=== PATIENT | male | born 1965 | race African-American/Black ===

== ENCOUNTER 2017-06-15 15:56 | Emergency (ER) | payer OTHER, MEDICAID ==
[~2017-06-15] VITALS: Ht 182.9 cm; Wt 108.9 kg
[~2017-06-15 15:56] MED LIST: BENA10TA9 PO; INSUINJ3; INSUINJ32; LEVO200I5 PO
[2017-06-15 16:59] LABS: Basophils # (auto) 0.1 uL; Basophils % (auto) 2.9 % (0.0-2.0); Eosinophils # (auto) 0.1 uL; Hematocrit 42.3 % (41.0-53.0); Hemoglobin 14.4 g/dL (13.5-17.5); Lymphocytes # (auto) 0.5 uL; Lymphocytes % (auto) 16.3 % (10.0-50.0); Mean Corpuscular Hemoglobin 33.1 pg (28.0-32.0); Mean Corpuscular Hgb Conc. 34.1 g/dL (32.0-36.0); Mean Platelet Volume 6.6 fL (7.4-10.4); Monocytes # (auto) 0.5 uL; Monocytes % (auto) 16.1 % (0.0-12.0); Neutrophils # (auto) 1.7 uL; Neutrophils % (auto) 59.7 % (37.0-80.0); Platelet Count (auto) 311 10^3/uL (140-450); Red Cell Distribution Width 14.2 % (11.6-16.0); White Blood Cell 2.9 10^3/uL (4.4-10.8)
[2017-06-15 17:59] LABS: Chloride 105 mmol/L (98-107); INR 1.05 (0.9-1.15); Potassium 3.8 mmol/L (3.5-5.1); Prothrombin Time 11.4 sec (9.37-12.3); Sodium 141 mmol/L (136-145)
[2017-06-15 18:00] LABS: Albumin 2.8 g/dL (3.4-5.0); Alkaline Phosphatase 88 U/L (45-117); Anion Gap 6 (5-15); Aspartate Aminotransferase 25 U/L (15-37); BUN/Creatinine Ratio 15.7; Bilirubin, Total 0.2 mg/dL (0.2-1.0); Blood Urea Nitrogen 18 mg/dL (7-18); Calcium 8.2 mg/dL (8.5-10.1); Carbon Dioxide 30 mmol/L (21-32); GFR African American 87 mL/min; GFR Non-African American 72 mL/min; Glucose 73 mg/dL (74-106); Total Protein 7.1 g/dL (6.4-8.2)
[2017-06-15 18:49] VITALS: BP 128/68
[2017-06-15] MEDS ORDERED: DEXTROSE (50%) 50ML SYRG IV ONE (19:00)
== END 2017-06-15 20:18 | disposition home or self-care (01) ==
LOC: ER 15:56 → EDBD 15:56 → ER 20:18
DX: E11.649 Type 2 diabetes mellitus with hypoglycemia without coma (principal); R41.82 Altered mental status, unspecified; Z82.79 Family history of other congenital malformations, deformations and chromosomal abnormalities; E07.89 Other specified disorders of thyroid; Z79.4 Long term (current) use of insulin
CPT/HCPCS: 36415; 70450; 71010; 80053; 82962; 83735; 84484; 85025; 85610; 85730; 93005; 94761

== ENCOUNTER 2018-11-30 09:55 | Inpatient (IN) | payer OTHER, MEDICAID ==
[~2018-11-30] VITALS: Ht 157.5 cm; Wt 75.1 kg
[~2018-11-30 09:55] MED LIST changes: -INSUINJ32; +INSUINJ32 SC
[2018-11-30 11:41] LABS: Basophils # (auto) 0.1 uL; Eosinophils # (auto) 0.1 uL; Eosinophils % (auto) 1.6 % (0.0-7.0); Lymphocytes # (auto) 0.8 uL; Monocytes # (auto) 0.3 uL
[2018-11-30 11:43] LABS: Basophils % (auto) 1.4 % (0.0-2.0); Hemoglobin 14.9 g/dL (13.5-17.5); Lymphocytes % (auto) 11.9 % (10.0-50.0); Mean Corpuscular Hemoglobin 31.9 pg (28.0-32.0); Mean Corpuscular Hgb Conc. 33.2 g/dL (32.0-36.0); Mean Corpuscular Volume 96.1 fL (80.0-100.0); Neutrophils # (auto) 5.4 uL; Neutrophils % (auto) 81.1 % (37.0-80.0); Nucleated Red Blood Cells % 0.1 %; Red Blood Cells 4.68 10^6/uL (4.5-5.90); Red Cell Distribution Width 14.6 % (11.8-14.3); White Blood Cell 6.7 10^3/uL (4.4-10.8)
[2018-11-30 11:58] LABS: Albumin 2.7 g/dL (3.4-5.0); Anion Gap 4 (5-15); Blood Urea Nitrogen 12 mg/dL (7-18); Calcium 8.3 mg/dL (8.5-10.1); Carbon Dioxide 28 mmol/L (21-32); Chloride 106 mmol/L (98-107); Glucose 208 mg/dL (74-106); Potassium 4.5 mmol/L (3.5-5.1); Sodium 138 mmol/L (136-145)
[2018-11-30 12:04] LABS: Alanine Aminotransferase 132 U/L (16-61); Alkaline Phosphatase 128 U/L (45-117); Aspartate Aminotransferase 44 U/L (15-37); Bilirubin, Total 0.2 mg/dL (0.2-1.0); GFR African American 101 mL/min; GFR Non-African American 84 mL/min; Total Protein 7.6 g/dL (6.4-8.2)
[2018-11-30 13:31] LABS: Platelet Count (auto) 589 10^3/uL (140-450)
[2018-11-30 16:28] LABS: Partial Thromboplastin Time 49.2 sec (23.78-33.04); Prothrombin Time 50.6 sec (9.27-12.13)
[2018-11-30] MEDS ORDERED: SODIUM CHLORIDE 0.9% 500 ML IV ONE (16:30)
[2018-11-30 16:32] LABS: INR 5.43 (0.9-1.15)
[2018-11-30] MEDS ORDERED: MORPHINE SULF INJ 2 MG/ML SYRINGE 1ML IV PRN (17:45)
[2018-11-30] MEDS ORDERED: LORazepam 2MG/ML-1ML VIAL IV PRN (17:45)
[2018-11-30] MEDS ORDERED: ONDANSETRON HCL 4 MG/2 ML VIAL IV PRN (17:45)
[2018-11-30] MEDS ORDERED: HYDROcodone-ACET 5/325MG TAB PO PRN (17:45)
[2018-11-30] MEDS ORDERED: MORPHINE SULFATE 4 MG/ML SYR/VIAL IV PRN (17:45)
[2018-11-30] MEDS ORDERED: NITROGLYCERIN 0.4 MG SL TAB SL PRN (17:45)
[2018-11-30] MEDS ORDERED: ACETAMINOPHEN 500 MG TAB PO PRN (17:45)
[2018-11-30] MEDS ORDERED: DEXTROSE (50%) 50ML SYRG IV PRN (17:45)
--- NOTE | 2018-11-30 20:35 | NUR ---
Pt received on unit, and receiving Keppra IV. Photo take of open sore on sacrum, perianal area. Pt appears in pain when area cleansed so pain meds given. Bed rails padded and suction available. Bed rails up and bed falls alarm set.
[2018-11-30 21:54] VITALS: BP 94/70
[2018-11-30] MEDS: ACCU-CHEK COMFORT CURVE STRIP VI SCH (22:20)
[2018-11-30] MEDS: InsuLIN REG 1unit/0.01ml Soln (100units/ml) SC SCH (22:20)
[2018-11-30] MEDS: LEVETIRACETAM INJ 1,000 MG in D5W 5% 100 ML IV SCH (22:39)
[2018-12-01 05:34] VITALS: BP 101/54
[2018-12-01] MEDS: InsuLIN REG 1unit/0.01ml Soln (100units/ml) SC SCH ×4 (06:58→22:44)
--- NOTE | 2018-12-01 07:00 | NUR ---
Pt's glucose 47 at 0615. D50 given, 1 amp and rechecked at 0700, and was 124. Dr. Gamble notified of this. Pt is asymptomatic.
[2018-12-01] MEDS: ACCU-CHEK COMFORT CURVE STRIP VI SCH ×4 (07:03→22:00)
--- NOTE | 2018-12-01 07:30 | NUR ---
Opening Shift Note Assumed care of patient, alert and oriented x3. No S/S of distress/SOB or pain. IV in left AC asymptomatic, intact, patent, and saline locked. Bed locked and in lowest position and call light is within reach. Instructed on POC and to call for assist PRN, and patient verbalized understanding to the best of his knowledge. Will continue to monitor for changes Q1hr and PRN.
[2018-12-01 07:51] LABS: Basophils # (auto) 0.1 uL; Eosinophils # (auto) 0.1 uL; Eosinophils % (auto) 1.9 % (0.0-7.0); Hematocrit 40.2 % (41.0-53.0); Hemoglobin 13.7 g/dL (13.5-17.5); Lymphocytes # (auto) 0.6 uL; Lymphocytes % (auto) 8.8 % (10.0-50.0); Mean Corpuscular Hemoglobin 32.2 pg (28.0-32.0); Mean Corpuscular Volume 94.8 fL (80.0-100.0); Monocytes # (auto) 0.3 uL; Monocytes % (auto) 4.8 % (0.0-12.0); Neutrophils # (auto) 5.9 uL; Neutrophils % (auto) 83.5 % (37.0-80.0); Platelet Count (auto) 533 10^3/uL (140-450); Red Blood Cells 4.24 10^6/uL (4.5-5.90); Red Cell Distribution Width 14.3 % (11.8-14.3); White Blood Cell 7.1 10^3/uL (4.4-10.8)
[2018-12-01 08:11] LABS: Partial Thromboplastin Time 57.6 sec (23.78-33.04)
[2018-12-01 08:29] LABS: INR 6.22 (0.9-1.15)
[2018-12-01 09:00] VITALS: BP 108/60
[2018-12-01 09:28] LABS: Anion Gap 6 (5-15); Carbon Dioxide 28 mmol/L (21-32); Chloride 107 mmol/L (98-107); Sodium 141 mmol/L (136-145)
[2018-12-01 09:29] LABS: BUN/Creatinine Ratio 12.2; Blood Urea Nitrogen 10 mg/dL (7-18); GFR African American 127 mL/min; GFR Non-African American 105 mL/min; Glucose 100 mg/dL (74-106)
[2018-12-01 09:30] LABS: Cholesterol 109 mg/dL (< 200); HDL Cholesterol 28 mg/dL (40-59); LDL Cholesterol 72 mg/dL (< 100); Triglycerides 94 mg/dL (< 150)
[2018-12-01] MEDS: LEVETIRACETAM INJ 1,000 MG in D5W 5% 100 ML IV SCH (10:00)
[2018-12-01] MEDS: BENAZEPRIL HCL 10 MG TAB PO SCH (10:00)
--- NOTE | 2018-12-01 12:26 | NUR ---
DR. LARRY AT BEDSIDE. NEW ORDERS RECEIVED.
[2018-12-01] MEDS: SODIUM CHLORIDE 0.9% 1,000 ML IV SCH ×2 (12:45→22:45)
[2018-12-01 13:00] VITALS: BP 112/62
--- NOTE | 2018-12-01 13:30 | NUR ---
WOUND CARE NOTE: Wound care consult received from nursing. Patient is a 53 yo male admitted for seizure activity. Patient has a history of down's syndrome, HTN, DM, and sacral wound. Patient seen with bedside RN, Angélica. Patient is drowsy, but opens eyes with repositioning and non verbal at time of assessment. No signs/symptoms of pain. Per chart, patient is wheelchair/bedbound. Patient's lower extremities appear slightly contracted. Patient with several areas of dry, scaly skin to bilateral lower extremities/knees. Patient also has a healing pressure injury to sacrum, now presents as a stage 3 wound. RECOMMENDATIONS: Turn q2hrs; dietary consult; Nursing to cleanse sacral wound with wound cleanser, pat dry, apply therahoney gel to open wounds, cover with optifoam gentle sacral dressing; wound care team to follow. Addendum: 12/01/18 at 1844 by NIKOLE PRESTON RN Amended: Links added.
--- NOTE | 2018-12-01 13:53 | NUR ---
ORDER AND CLINICALS FAXED TO [facility] REQUESTING TRANSFER TO [facility].
--- NOTE | 2018-12-01 14:31 | NUR ---
PATIENT HAS BEEN PUT ON WILL CALL WITH [facility] AUTH NUMBER [id number]. PLEASE CALL [facility] AT [phone] WHEN PATIENT IS READY TO TRANSFER TO [facility]
[2018-12-01] MEDS: LEVETIRACETAM INJ 500 MG in D5W 5% 100 ML IV SCH (21:13)
[2018-12-01 22:00] VITALS: BP 101/55
[2018-12-02 05:00] VITALS: BP 108/71
[2018-12-02 05:47] LABS: Partial Thromboplastin Time 57.8 sec (23.78-33.04); Prothrombin Time 58.5 sec (9.27-12.13)
[2018-12-02 05:57] LABS: INR 6.05 (0.9-1.15)
[2018-12-02] MEDS: ACCU-CHEK COMFORT CURVE STRIP VI SCH ×2 (06:45→12:00)
[2018-12-02] MEDS: InsuLIN REG 1unit/0.01ml Soln (100units/ml) SC SCH ×2 (06:52→12:00)
--- NOTE | 2018-12-02 07:00 | NUR ---
Opening Shift Note Assumed care of patient. Patient is awake, but fatigued, and oriented x2. No S/S of distress/SOB or pain. IV in left forearm 20 gauge asymptomatic, intact, patent, and infusing normal saline at 100 mL/hour. Bed locked and in lowest position and call light is within reach and bed alarm is on. Instructed on POC and to call for assist PRN, and patient verbalized understanding to the best of his ability. Will continue to monitor for changes Q1hr and PRN.
[2018-12-02] MEDS: SODIUM CHLORIDE 0.9% 1,000 ML IV SCH (08:45)
[2018-12-02] MEDS: LEVETIRACETAM INJ 500 MG in D5W 5% 100 ML IV SCH (09:47)
[2018-12-02] MEDS: BENAZEPRIL HCL 10 MG TAB PO SCH (09:49)
[2018-12-02 10:52] LABS: Eosinophils # (auto) 0.2 uL; Hemoglobin 12.7 g/dL (13.5-17.5); Lymphocytes # (auto) 0.7 uL; Monocytes # (auto) 0.4 uL
[2018-12-02 10:55] LABS: Basophils # (auto) 0 uL; Basophils % (auto) 0.7 % (0.0-2.0); Eosinophils % (auto) 3.5 % (0.0-7.0); Hematocrit 38.2 % (41.0-53.0); Lymphocytes % (auto) 12.9 % (10.0-50.0); Mean Corpuscular Hemoglobin 31.9 pg (28.0-32.0); Mean Corpuscular Hgb Conc. 33.3 g/dL (32.0-36.0); Monocytes % (auto) 7.4 % (0.0-12.0); Neutrophils # (auto) 4.1 uL; Neutrophils % (auto) 75.5 % (37.0-80.0); Nucleated Red Blood Cells % 0.1 %; Platelet Count (auto) 471 10^3/uL (140-450); Red Blood Cells 3.98 10^6/uL (4.5-5.90); Red Cell Distribution Width 14.2 % (11.8-14.3); White Blood Cell 5.4 10^3/uL (4.4-10.8)
[2018-12-02 11:08] LABS: Albumin 2.1 g/dL (3.4-5.0); BUN/Creatinine Ratio 9.5; Calcium 7.7 mg/dL (8.5-10.1); Magnesium 1.8 mg/dL (1.6-2.6); Potassium 3.9 mmol/L (3.5-5.1)
[2018-12-02 11:20] LABS: Bilirubin, Total 0.3 mg/dL (0.2-1.0); Total Protein 6.1 g/dL (6.4-8.2)
--- NOTE | 2018-12-02 14:14 | NUR ---
PATIENT HAS BEEN ACCEPTED AT [facility] [place] ROOM [address]A. NUMBER FOR REPORT IS [phone]. [facility] WILL TRANSPORT AT 3:00PM
[2018-12-02 14:19] VITALS: BP 96/61
--- NOTE | 2018-12-02 15:31 | NUR ---
PATIENT TO BE TRANSFERRED TO [facility]. GAVE REPORT TO KARLEY LAMBERT, AT [facility].
[2018-12-02 17:00] VITALS: BP 115/80
--- NOTE | 2018-12-02 17:00 | NUR ---
PATIENT TRANSFERRED TO [facility] Discharge instructions given as ordered. All questions and concerns addressed. Patient verbalized understanding. Medication reconciliation form completed and copy given to patient. Telemetry unit returned to [facility]. No distress noted at time of departure.
== END 2018-12-02 19:21 | disposition short-term general hospital (02) | DRG 100 ==
LOC: EDBD 09:55 → ER 09:58 → TELE 17:41 → TELE-WESTW 20:07
PROVIDERS: ADMIT Nurse Practitioner Acute Care; ATTEND Internal Medicine Geriatric Medicine
DX: G40.909 Epilepsy, unspecified, not intractable, without status epilepticus (principal); G93.41 Metabolic encephalopathy; E44.0 Moderate protein-calorie malnutrition; D68.9 Coagulation defect, unspecified; F72 Severe intellectual disabilities; I10 Essential (primary) hypertension; E11.9 Type 2 diabetes mellitus without complications; E03.9 Hypothyroidism, unspecified; E66.9 Obesity, unspecified; F02.80 Dementia in other diseases classified elsewhere, unspecified severity, without behavioral disturbance, psychotic disturbance, mood disturbance, and anxiety; F17.200 Nicotine dependence, unspecified, uncomplicated; G30.9 Alzheimer's disease, unspecified; I67.2 Cerebral atherosclerosis; L89.159 Pressure ulcer of sacral region, unspecified stage; T45.515A Adverse effect of anticoagulants, initial encounter; Y92.89 Other specified places as the place of occurrence of the external cause; Z79.01 Long term (current) use of anticoagulants; Z79.899 Other long term (current) drug therapy; Z79.4 Long term (current) use of insulin; Q90.9 Down syndrome, unspecified; Z86.718 Personal history of other venous thrombosis and embolism; Z82.61 Family history of arthritis; Z84.89 Family history of other specified conditions; Z68.30 Body mass index [BMI] 30.0-30.9, adult; R06.03 Acute respiratory distress
CPT/HCPCS: 36415; 70450; 71045; 80048; 80053; 80061; 82550; 82962; 83036; 83735; 84443; 84484; 85025; 85610; 85730; 94761; 96360; G0378; J1815; J7060

== ENCOUNTER 2021-01-02 23:05 | Inpatient (IN) | payer OTHER, MEDICAID ==
[~2021-01-02] VITALS: Ht 162.6 cm; Wt 72.5 kg
[2021-01-02] MEDS ORDERED: MIDAZOLAM DRIP 50 mg/50mL 50 ML IV ONE (23:09)
[2021-01-02] MEDS ORDERED: SUCCINYLCHOLINE CHLORIDE 20 MG/ML 10ML VIAL IV ONE ×2 (23:10→23:30)
[2021-01-02] MEDS ORDERED: ETOMIDATE (2MG/ML) 20ML VIAL IV ONE ×2 (23:10→23:30)
[2021-01-02] MEDS ORDERED: NOREPINEPHRINE 8 MG/250ML KIT 250 ML IV ONE (23:10)
[2021-01-02] MEDS ORDERED: HYDROCORTISONE SOD SUCC 100 MG/2ML INJ VIAL IV ONE (23:15)
[2021-01-02] MEDS ORDERED: VANCOMYCIN 1GM/250ML 250 ML IV ONE (23:15)
[2021-01-02] MEDS ORDERED: PIPERACILLIN-TAZOB 3.375GM 100 ML IV ONE (23:15)
[2021-01-02 23:20] VITALS: BP 106/38
[2021-01-02] MEDS: MIDAZOLAM DRIP 50 mg/50mL 50 ML IV SCH (23:28)
[2021-01-02] MEDS ORDERED: SODIUM CHLORIDE 0.9% 2,000 ML IV ONE (23:30)
[2021-01-02] MEDS ORDERED: NOREPINEPHRINE 8 MG/250ML KIT 250 ML IV SCH (23:30)
[2021-01-02] MEDS ORDERED: ACETAMINOPHEN 650 MG RECT SUPP PR ONE (23:30)
[2021-01-02 23:35] VITALS: BP 106/38
[2021-01-02] MEDS: NOREPINEPHRINE 8 MG/250ML KIT 250 ML IV SCH (23:46)
[2021-01-03] VITALS (66 sets, daily range): BP systolic 82–132; BP diastolic 50–84
[2021-01-03 00:03] LABS: Eosinophils # (auto) 0.1 10 ^3/uL (0-0.8); Eosinophils % (auto) 0.4 % (0.0-7.0); Neutrophils % (auto) 81.3 % (37.0-80.0)
[2021-01-03 00:05] LABS: Basophils # (auto) 0.1 10 ^3/uL (0-0.2); Basophils % (auto) 0.3 % (0.0-2.0); Hematocrit 27.7 % (41.0-53.0); Hemoglobin 8.6 g/dL (13.5-17.5); Lymphocytes # (auto) 2.4 10 ^3/uL (0.4-5.4); Lymphocytes % (auto) 14.7 % (10.0-50.0); Mean Corpuscular Hemoglobin 28.7 pg (28.0-32.0); Mean Corpuscular Volume 92.6 fL (80.0-100.0); Monocytes # (auto) 0.5 10 ^3/uL (0-1.3); Monocytes % (auto) 3.3 % (0.0-12.0); Platelet Count (auto) 457 10^3/uL (140-450); Red Blood Cells 2.99 10^6/uL (4.5-5.90); Red Cell Distribution Width 17.5 % (11.8-14.3)
[2021-01-03 00:26] LABS: Albumin 1.5 g/dL (3.4-5.0); BUN/Creatinine Ratio 15.6; Calcium 6.9 mg/dL (8.5-10.1); Potassium 4.6 mmol/L (3.5-5.1)
[2021-01-03 00:29] LABS: Lactic Acid w/Reflex 6.2 mmol/L (0.4-2.0)
[2021-01-03 00:31] LABS: Bilirubin, Total 0.1 mg/dL (0.2-1.0); Total Protein 7.1 g/dL (6.4-8.2)
[2021-01-03] MEDS: MIDAZOLAM DRIP 50 mg/50mL 50 ML IV SCH ×4 (01:29→15:26)
[2021-01-03] MEDS ORDERED: APIX5TAB PO (04:28)
[2021-01-03] MEDS ORDERED: LEVE100S9 PO (04:28)
[2021-01-03 07:11] LABS: Urine Bacteria FEW /hpf (None Seen); Urine Blood Negative /uL (Negative); Urine Mucus FEW (None Seen); Urine Specific Gravity 1.025 (1.001-1.035); Urine WBC 33 /hpf (0 - 3); Urine WBC Clumps PRESENT /hpf (None Seen)
[2021-01-03] MEDS ORDERED: VANCOMYCIN PER PHARMACY 0 MG IV SCH (07:15)
[2021-01-03] MEDS ORDERED: CALCIUM GLUC 1,000mg/50ml-NS 50 ML IV ONE (07:15)
[2021-01-03] MEDS ORDERED: ACETAMINOPHEN 650 MG RECT SUPP PR PRN (07:15)
[2021-01-03] MEDS ORDERED: ONDANSETRON HCL 4 MG/2 ML VIAL IV PRN (07:15)
[2021-01-03 07:55] LABS: Basophils # (auto) 0 10 ^3/uL (0-0.2); Basophils % (auto) 0.1 % (0.0-2.0); Eosinophils # (auto) 0 10 ^3/uL (0-0.8); Hemoglobin 7.5 g/dL (13.5-17.5); Lymphocytes # (auto) 1.1 10 ^3/uL (0.4-5.4); Mean Corpuscular Hgb Conc. 31.7 g/dL (32.0-36.0); Monocytes # (auto) 0.5 10 ^3/uL (0-1.3); Monocytes % (auto) 2.4 % (0.0-12.0)
[2021-01-03 07:57] LABS: Hematocrit 23.7 % (41.0-53.0); Lymphocytes % (auto) 4.9 % (10.0-50.0); Mean Corpuscular Hemoglobin 28.7 pg (28.0-32.0); Mean Corpuscular Volume 90.6 fL (80.0-100.0); Neutrophils % (auto) 92.6 % (37.0-80.0); Platelet Count (auto) 421 10^3/uL (140-450); Red Blood Cells 2.62 10^6/uL (4.5-5.90); Red Cell Distribution Width 17.4 % (11.8-14.3); White Blood Cell 21.6 10^3/uL (4.4-10.8)
[2021-01-03] MEDS: ALBUMIN 25% 50 ML IV SCH ×3 (07:57→23:15)
[2021-01-03] MEDS: SOD CHL 0.45% 1,000 ML IV SCH ×2 (07:58→22:00)
[2021-01-03 08:15] LABS: Albumin 1.4 g/dL (3.4-5.0); Calcium 7.2 mg/dL (8.5-10.1); Potassium 4.4 mmol/L (3.5-5.1)
[2021-01-03] MEDS ORDERED: NITROGLYCERIN 0.4 MG SL TAB SL PRN (08:15)
[2021-01-03] MEDS ORDERED: MORPHINE SULF INJ 2 MG/ML SYRINGE 1ML IV PRN (08:15)
[2021-01-03 08:19] LABS: BUN/Creatinine Ratio 18.9; Bilirubin, Total 0.3 mg/dL (0.2-1.0); Total Protein 6.6 g/dL (6.4-8.2)
[2021-01-03] MEDS ORDERED: FAMOTIDINE (10MG/ML) 2ML VL IV SCH (10:00)
[2021-01-03] MEDS ORDERED: HEPARIN SODIUM (PORCINE) 5000 UNITS/ML 1ML VIAL SC SCH (10:00)
[2021-01-03] MEDS ORDERED: VANCOMYCIN 1GM/250ML 250 ML IV ONE (10:00)
[2021-01-03] MEDS: AZITHROMYCIN 500MG/ 250ML 250 ML IV SCH (10:42)
[2021-01-03] MEDS: InsuLIN REG 1unit/0.01ml Soln (100units/ml) SC SCH ×3 (12:00→17:50)
[2021-01-03] MEDS: ACCU-CHEK COMFORT CURVE STRIP VI SCH ×2 (12:00→17:48)
[2021-01-03] MEDS ORDERED: FUROSEMIDE 20 MG/2 ML VIAL IV ONE (13:30)
[2021-01-03] MEDS: PIPERACILLIN-TAZOB 3.375GM 100 ML IV SCH ×2 (13:35→22:00)
[2021-01-03 18:08] LABS: INR 1.29 (0.9-1.15)
[2021-01-03] MEDS ORDERED: PANTOPRAZOLE 40 MG/10 ML VIAL INJ IV SCH (22:00)
[2021-01-03] MEDS: ESOMEPRAZOLE 40 MG/5ml VIAL INJ IV SCH (22:00)
[2021-01-03] MEDS ORDERED: INSULIN LANTUS (GLARGINE) 1 /0.01ml (100units/ml) SC SCH (22:00)
[2021-01-03] MEDS: VANCOMYCIN 1GM/250ML 250 ML IV SCH (23:11)
[2021-01-04] VITALS (101 sets, daily range): BP systolic 52–153; BP diastolic 16–120
[2021-01-04] MEDS: DEXTROSE (50%) 50ML SYRG IV PRN ×2 (04:11→05:30)
[2021-01-04 04:26] LABS: Basophils # (auto) 0 10 ^3/uL (0-0.2); Basophils % (auto) 0.4 % (0.0-2.0); Eosinophils # (auto) 0 10 ^3/uL (0-0.8); Eosinophils % (auto) 0.4 % (0.0-7.0); Hematocrit 26.6 % (41.0-53.0); Hemoglobin 8.8 g/dL (13.5-17.5); Lymphocytes # (auto) 1.1 10 ^3/uL (0.4-5.4); Mean Corpuscular Hemoglobin 29.5 pg (28.0-32.0); Mean Corpuscular Hgb Conc. 33.1 g/dL (32.0-36.0); Mean Corpuscular Volume 89.2 fL (80.0-100.0); Monocytes # (auto) 0.4 10 ^3/uL (0-1.3); Monocytes % (auto) 2.8 % (0.0-12.0); Neutrophils # (auto) 12.1 10 ^3/uL (1.6-8.6); Neutrophils % (auto) 88.4 % (37.0-80.0); Nucleated Red Blood Cells % 0.1 %; Platelet Count (auto) 345 10^3/uL (140-450); Red Blood Cells 2.98 10^6/uL (4.5-5.90); Red Cell Distribution Width 16.2 % (11.8-14.3); White Blood Cell 13.7 10^3/uL (4.4-10.8)
[2021-01-04 04:55] LABS: Albumin 1.7 g/dL (3.4-5.0); BUN/Creatinine Ratio 18.9; Calcium 7.1 mg/dL (8.5-10.1)
[2021-01-04 04:58] LABS: Bilirubin, Total 0.4 mg/dL (0.2-1.0); Total Protein 6.5 g/dL (6.4-8.2)
[2021-01-04 05:06] LABS: Potassium 2.6 mmol/L (3.5-5.1)
[2021-01-04] MEDS ORDERED: D5W/SOD CHL 0.45% 1,000 ML IV SCH (05:15)
[2021-01-04] MEDS: PIPERACILLIN-TAZOB 3.375GM 100 ML IV SCH ×3 (06:00→22:02)
[2021-01-04] MEDS: InsuLIN REG 1unit/0.01ml Soln (100units/ml) SC SCH ×2 (06:00→17:34)
[2021-01-04] MEDS: MIDAZOLAM DRIP 50 mg/50mL 50 ML IV SCH ×4 (06:00→22:00)
[2021-01-04] MEDS: POTASSIUM CHL 20MEQ/100ML 100 ML IV SCH ×5 (06:00→11:33)
[2021-01-04] MEDS: ACCU-CHEK COMFORT CURVE STRIP VI SCH ×3 (06:00→17:33)
[2021-01-04] MEDS: ENOXAPARIN SOD 40 MG/0.4 ML SYRINGE SC SCH (08:41)
[2021-01-04] MEDS ORDERED: diphenhdrAMINE HCL 50 MG/1 ML VL ONE (09:41)
[2021-01-04] MEDS ORDERED: MIDAZOLAM HCL 5 MG/ML-1ML VIAL ONE (09:41)
[2021-01-04] MEDS ORDERED: fentaNYL CITRATE 100 MCG/2 ML VL ONE (09:41)
[2021-01-04] MEDS: AZITHROMYCIN 500MG/ 250ML 250 ML IV SCH (10:44)
[2021-01-04 10:56] LABS: INR 1.22 (0.9-1.15); Partial Thromboplastin Time 36.1 sec (23.0-31.2)
[2021-01-04 11:22] LABS: BUN/Creatinine Ratio 11.7; Calcium 6.9 mg/dL (8.5-10.1); Magnesium 2.1 mg/dL (1.6-2.6); Potassium 4.3 mmol/L (3.5-5.1)
[2021-01-04] MEDS: ESOMEPRAZOLE 40 MG/5ml VIAL INJ IV SCH ×2 (11:26→22:02)
[2021-01-04] MEDS: NOREPINEPHRINE 8 MG/250ML KIT 250 ML IV SCH ×3 (11:42→18:33)
[2021-01-04] MEDS ORDERED: DEXTROSE (50%) 50ML SYRG IV PRN (12:15)
[2021-01-04] MEDS: D5W/SOD CHL 0.45% 1,000 ML IV SCH (12:32)
[2021-01-04] MEDS: VANCOMYCIN 1GM/250ML 250 ML IV SCH (12:39)
[2021-01-04] MEDS ORDERED: VANCOMYCIN 1GM/250ML 250 ML IV SCH (15:00)
[2021-01-04] MEDS: MUPIROCIN 2% OINT 15gm or 22gm EACHNOSTRI SCH (22:02)
[2021-01-05] VITALS (103 sets, daily range): BP systolic 88–135; BP diastolic 40–86
[2021-01-05] MEDS: VANCOMYCIN 1GM/250ML 250 ML IV SCH ×2 (01:00→12:52)
[2021-01-05] MEDS: D5W/SOD CHL 0.45% 1,000 ML IV SCH ×2 (03:05→15:04)
[2021-01-05 04:31] LABS: Basophils % (auto) 0.3 % (0.0-2.0); Hemoglobin 8.2 g/dL (13.5-17.5); Lymphocytes % (auto) 5.8 % (10.0-50.0); Neutrophils # (auto) 14.9 10 ^3/uL (1.6-8.6); White Blood Cell 16.5 10^3/uL (4.4-10.8)
[2021-01-05 04:35] LABS: Basophils # (auto) 0.1 10 ^3/uL (0-0.2); Eosinophils # (auto) 0.2 10 ^3/uL (0-0.8); Eosinophils % (auto) 1.3 % (0.0-7.0); Hematocrit 24.9 % (41.0-53.0); Mean Corpuscular Hemoglobin 29.4 pg (28.0-32.0); Mean Corpuscular Hgb Conc. 32.7 g/dL (32.0-36.0); Mean Corpuscular Volume 89.9 fL (80.0-100.0); Monocytes # (auto) 0.5 10 ^3/uL (0-1.3); Monocytes % (auto) 2.7 % (0.0-12.0); Neutrophils % (auto) 89.9 % (37.0-80.0); Nucleated Red Blood Cells % 0.1 %; Platelet Count (auto) 318 10^3/uL (140-450); Red Blood Cells 2.77 10^6/uL (4.5-5.90); Red Cell Distribution Width 17.2 % (11.8-14.3)
[2021-01-05 04:44] LABS: Albumin 1.6 g/dL (3.4-5.0); Calcium 7.2 mg/dL (8.5-10.1); Potassium 3.5 mmol/L (3.5-5.1)
[2021-01-05 04:49] LABS: BUN/Creatinine Ratio 10.2; Bilirubin, Total 0.3 mg/dL (0.2-1.0)
[2021-01-05 05:43] LABS: INR 1.3 (0.9-1.15)
[2021-01-05] MEDS: PIPERACILLIN-TAZOB 3.375GM 100 ML IV SCH ×3 (06:04→22:00)
[2021-01-05] MEDS: InsuLIN REG 1unit/0.01ml Soln (100units/ml) SC SCH ×4 (06:07→17:12)
[2021-01-05] MEDS: ACCU-CHEK COMFORT CURVE STRIP VI SCH ×5 (06:07→23:00)
[2021-01-05] MEDS: ENOXAPARIN SOD 40 MG/0.4 ML SYRINGE SC SCH (10:00)
[2021-01-05] MEDS: ESOMEPRAZOLE 40 MG/5ml VIAL INJ IV SCH ×2 (10:08→22:00)
[2021-01-05] MEDS: MUPIROCIN 2% OINT 15gm or 22gm EACHNOSTRI SCH ×2 (10:08→22:00)
[2021-01-05] MEDS: AZITHROMYCIN 500MG/ 250ML 250 ML IV SCH (10:09)
[2021-01-05] MEDS: MIDAZOLAM DRIP 50 mg/50mL 50 ML IV SCH ×2 (11:55→18:33)
[2021-01-05] MEDS ORDERED: Glucerna 1.2 Cal 1Liter BOTTLE GT SCH (14:15)
[2021-01-05] MEDS: NOREPINEPHRINE 8 MG/250ML KIT 250 ML IV SCH (14:31)
[2021-01-06] VITALS (96 sets, daily range): BP systolic 79–153; BP diastolic 42–77
[2021-01-06] MEDS: VANCOMYCIN 1GM/250ML 250 ML IV SCH (01:00)
[2021-01-06 04:53] LABS: Potassium 3.2 mmol/L (3.5-5.1)
[2021-01-06 04:58] LABS: BUN/Creatinine Ratio 8.6; Calcium 7.3 mg/dL (8.5-10.1)
[2021-01-06] MEDS: PIPERACILLIN-TAZOB 3.375GM 100 ML IV SCH ×3 (06:00→22:00)
[2021-01-06] MEDS: InsuLIN REG 1unit/0.01ml Soln (100units/ml) SC SCH ×2 (06:05→11:42)
[2021-01-06] MEDS: ACCU-CHEK COMFORT CURVE STRIP VI SCH ×3 (06:09→17:34)
[2021-01-06] MEDS: MUPIROCIN 2% OINT 15gm or 22gm EACHNOSTRI SCH ×2 (11:11→22:00)
[2021-01-06] MEDS: ESOMEPRAZOLE 40 MG/5ml VIAL INJ IV SCH ×2 (11:11→22:00)
[2021-01-06] MEDS: MIDAZOLAM DRIP 50 mg/50mL 50 ML IV SCH (11:12)
[2021-01-06] MEDS: AZITHROMYCIN 500MG/ 250ML 250 ML IV SCH (11:27)
[2021-01-06] MEDS: NOREPINEPHRINE 8 MG/250ML KIT 250 ML IV SCH (11:43)
[2021-01-06] MEDS: D5W/SOD CHL 0.45% 1,000 ML IV SCH (12:00)
[2021-01-06] MEDS: ENOXAPARIN SOD 40 MG/0.4 ML SYRINGE SC SCH (12:08)
[2021-01-06] MEDS: POTASSIUM CHL 20MEQ/100ML 100 ML IV SCH ×2 (12:08→14:10)
[2021-01-06 12:31] LABS: Basophils # (auto) 0 10 ^3/uL (0-0.2); Basophils % (auto) 0.4 % (0.0-2.0); Eosinophils # (auto) 0.2 10 ^3/uL (0-0.8); Hematocrit 25.6 % (41.0-53.0); Hemoglobin 8.6 g/dL (13.5-17.5); Lymphocytes # (auto) 0.9 10 ^3/uL (0.4-5.4); Lymphocytes % (auto) 8.7 % (10.0-50.0); Mean Corpuscular Hemoglobin 29.7 pg (28.0-32.0); Mean Corpuscular Hgb Conc. 33.4 g/dL (32.0-36.0); Mean Corpuscular Volume 88.9 fL (80.0-100.0); Monocytes # (auto) 0.5 10 ^3/uL (0-1.3); Monocytes % (auto) 4.7 % (0.0-12.0); Neutrophils # (auto) 9.2 10 ^3/uL (1.6-8.6); Neutrophils % (auto) 84.2 % (37.0-80.0); Nucleated Red Blood Cells % 0.1 %; Platelet Count (auto) 304 10^3/uL (140-450); Red Blood Cells 2.88 10^6/uL (4.5-5.90); Red Cell Distribution Width 17.1 % (11.8-14.3); White Blood Cell 10.9 10^3/uL (4.4-10.8)
[2021-01-06] MEDS: MAGNESIUM SULFATE 1GM/100ML 100 ML IV SCH ×2 (14:10→15:18)
[2021-01-06] MEDS ORDERED: DEXTROSE (50%) 50ML SYRG IV PRN (14:45)
[2021-01-06] MEDS ORDERED: D5W/SOD CHL 0.45% 1,000 ML IV SCH (14:45)
[2021-01-06] MEDS: LINEZOLID 600MG/300ML 300 ML IV SCH (20:00)
[2021-01-07] VITALS (101 sets, daily range): BP systolic 84–123; BP diastolic 44–72
[2021-01-07 04:19] LABS: Basophils # (auto) 0 10 ^3/uL (0-0.2); Basophils % (auto) 0.3 % (0.0-2.0); Eosinophils # (auto) 0.1 10 ^3/uL (0-0.8); Eosinophils % (auto) 1.1 % (0.0-7.0); Hematocrit 27.9 % (41.0-53.0); Hemoglobin 8.9 g/dL (13.5-17.5); Lymphocytes # (auto) 1.1 10 ^3/uL (0.4-5.4); Lymphocytes % (auto) 8.6 % (10.0-50.0); Mean Corpuscular Hemoglobin 29.4 pg (28.0-32.0); Mean Corpuscular Hgb Conc. 31.9 g/dL (32.0-36.0); Monocytes # (auto) 0.4 10 ^3/uL (0-1.3); Monocytes % (auto) 3.3 % (0.0-12.0); Neutrophils # (auto) 11.4 10 ^3/uL (1.6-8.6); Neutrophils % (auto) 86.7 % (37.0-80.0); Nucleated Red Blood Cells % 0.1 %; Platelet Count (auto) 322 10^3/uL (140-450); Red Blood Cells 3.04 10^6/uL (4.5-5.90); Red Cell Distribution Width 17.9 % (11.8-14.3); White Blood Cell 13.2 10^3/uL (4.4-10.8)
[2021-01-07 04:38] LABS: Potassium 4.1 mmol/L (3.5-5.1)
[2021-01-07 04:44] LABS: Albumin 1.4 g/dL (3.4-5.0); BUN/Creatinine Ratio 8.8; Bilirubin, Total 0.5 mg/dL (0.2-1.0); Calcium 7.3 mg/dL (8.5-10.1); Magnesium 2.3 mg/dL (1.6-2.6); Total Protein 5.9 g/dL (6.4-8.2)
[2021-01-07] MEDS: PIPERACILLIN-TAZOB 3.375GM 100 ML IV SCH ×3 (05:35→21:22)
[2021-01-07] MEDS: ACCU-CHEK COMFORT CURVE STRIP VI SCH ×5 (05:35→23:36)
[2021-01-07] MEDS: LINEZOLID 600MG/300ML 300 ML IV SCH ×2 (07:44→20:23)
[2021-01-07] MEDS ORDERED: DEXTROSE (50%) 50ML SYRG IV PRN (08:15)
[2021-01-07] MEDS: InsuLIN REG 1unit/0.01ml Soln (100units/ml) SC SCH ×4 (08:20→23:33)
[2021-01-07] MEDS: MUPIROCIN 2% OINT 15gm or 22gm EACHNOSTRI SCH ×2 (09:50→21:22)
[2021-01-07] MEDS: AZITHROMYCIN 500MG/ 250ML 250 ML IV SCH (09:50)
[2021-01-07] MEDS: ENOXAPARIN SOD 40 MG/0.4 ML SYRINGE SC SCH (09:50)
[2021-01-07] MEDS: ESOMEPRAZOLE 40 MG/5ml VIAL INJ IV SCH ×2 (09:51→21:22)
[2021-01-07] MEDS ORDERED: LACTATED RINGER'S 1,000 ML IV ONE (15:30)
[2021-01-07] MEDS: MIDAZOLAM DRIP 50 mg/50mL 50 ML IV SCH (18:17)
[2021-01-07] MEDS ORDERED: INSULIN LANTUS (GLARGINE) 1 /0.01ml (100units/ml) SC SCH (22:00)
[2021-01-07] MEDS: NOREPINEPHRINE 8 MG/250ML KIT 250 ML IV SCH (23:29)
[2021-01-08] VITALS (92 sets, daily range): BP systolic 55–136; BP diastolic 24–102
[2021-01-08] MEDS: MIDAZOLAM DRIP 50 mg/50mL 50 ML IV SCH ×2 (03:00→11:55)
[2021-01-08] MEDS: NOREPINEPHRINE 8 MG/250ML KIT 250 ML IV SCH (03:11)
[2021-01-08 04:25] LABS: Eosinophils # (auto) 0.4 10 ^3/uL (0-0.8); Hemoglobin 8.3 g/dL (13.5-17.5); Lymphocytes # (auto) 1.1 10 ^3/uL (0.4-5.4); Nucleated Red Blood Cells % 0.2 %
[2021-01-08 04:27] LABS: Basophils # (auto) 0.1 10 ^3/uL (0-0.2); Basophils % (auto) 0.6 % (0.0-2.0); Eosinophils % (auto) 3.9 % (0.0-7.0); Hematocrit 24.2 % (41.0-53.0); Lymphocytes % (auto) 10.7 % (10.0-50.0); Mean Corpuscular Hemoglobin 30.1 pg (28.0-32.0); Mean Corpuscular Hgb Conc. 34.1 g/dL (32.0-36.0); Mean Corpuscular Volume 88.3 fL (80.0-100.0); Monocytes # (auto) 0.6 10 ^3/uL (0-1.3); Monocytes % (auto) 6.1 % (0.0-12.0); Neutrophils # (auto) 8.3 10 ^3/uL (1.6-8.6); Neutrophils % (auto) 78.7 % (37.0-80.0); Platelet Count (auto) 324 10^3/uL (140-450); Red Blood Cells 2.74 10^6/uL (4.5-5.90); Red Cell Distribution Width 16.8 % (11.8-14.3); White Blood Cell 10.5 10^3/uL (4.4-10.8)
[2021-01-08 04:42] LABS: Potassium 3.3 mmol/L (3.5-5.1)
[2021-01-08 04:49] LABS: BUN/Creatinine Ratio 9.4; Calcium 7.4 mg/dL (8.5-10.1)
[2021-01-08] MEDS: InsuLIN REG 1unit/0.01ml Soln (100units/ml) SC SCH ×2 (05:46→12:00)
[2021-01-08] MEDS: PIPERACILLIN-TAZOB 3.375GM 100 ML IV SCH ×2 (05:46→17:30)
[2021-01-08] MEDS: ACCU-CHEK COMFORT CURVE STRIP VI SCH ×2 (05:47→12:23)
[2021-01-08] MEDS: LINEZOLID 600MG/300ML 300 ML IV SCH (09:30)
[2021-01-08] MEDS: ENOXAPARIN SOD 40 MG/0.4 ML SYRINGE SC SCH (10:28)
[2021-01-08] MEDS: ESOMEPRAZOLE 40 MG/5ml VIAL INJ IV SCH (10:28)
[2021-01-08] MEDS: MUPIROCIN 2% OINT 15gm or 22gm EACHNOSTRI SCH (10:36)
[2021-01-08] MEDS: AZITHROMYCIN 500MG/ 250ML 250 ML IV SCH (11:53)
[2021-01-08] MEDS ORDERED: POTASSIUM CHL 20MEQ/100ML 100 ML IV PRN (13:30)
[2021-01-08] MEDS ORDERED: DEXTROSE (50%) 50ML SYRG IV PRN (13:30)
[2021-01-08] MEDS: POTASSIUM CHL 20MEQ/100ML 200 ML IV PRN ×2 (15:15→17:21)
[2021-01-08] MEDS ORDERED: InsuLIN REG 1unit/0.01ml Soln (100units/ml) SC SCH (18:00)
[2021-01-08] MEDS ORDERED: ACCU-CHEK COMFORT CURVE STRIP VI SCH (18:00)
== END 2021-01-08 20:45 | disposition short-term general hospital (02) | DRG 870 ==
LOC: EDBD 23:05 → ER 23:07 → TELE 23:08 → ICU WEST 01-03 09:29
PROVIDERS: ADMIT Nurse Practitioner Family; ATTEND Hospitalist
PROC: 5A1955Z Respiratory Ventilation, Greater than 96 Consecutive Hours (ICD-10-PCS; 2021-01-02)
PROC: 0BH17EZ Insertion of Endotracheal Airway into Trachea, Via Natural or Artificial Opening (ICD-10-PCS; 2021-01-02)
PROC: 02HV33Z Insertion of Infusion Device into Superior Vena Cava, Percutaneous Approach (ICD-10-PCS; 2021-01-03)
PROC: 30230N1 Transfusion of Nonautologous Red Blood Cells into Peripheral Vein, Open Approach (ICD-10-PCS; 2021-01-04)
PROC: 0DJ08ZZ Inspection of Upper Intestinal Tract, Via Natural or Artificial Opening Endoscopic (ICD-10-PCS; principal; 2021-01-04 10:00)
DX: A41.9 Sepsis, unspecified organism (principal); L89.154 Pressure ulcer of sacral region, stage 4; J18.9 Pneumonia, unspecified organism; J96.01 Acute respiratory failure with hypoxia; E87.2 Acidosis; E11.621 Type 2 diabetes mellitus with foot ulcer; D47.3 Essential (hemorrhagic) thrombocythemia; E83.51 Hypocalcemia; E88.09 Other disorders of plasma-protein metabolism, not elsewhere classified; E11.65 Type 2 diabetes mellitus with hyperglycemia; I50.9 Heart failure, unspecified; D64.9 Anemia, unspecified; Z20.822 Contact with and (suspected) exposure to COVID-19; E03.9 Hypothyroidism, unspecified; I11.0 Hypertensive heart disease with heart failure; Q90.9 Down syndrome, unspecified; Z82.61 Family history of arthritis
CPT/HCPCS: 31500; 36415; 36556; 36600; 43235; 51702; 71045; 80048; 80053; 80202; 81001; 82565; 82805; 82962; 83036; 83605; 83735; 83880; 84484; 85025; 85379; 85610; 85730; 86850; 86900; 86901; 86920; 87040; 87070; 87077; 87081; 87086; 87186; 87205; 87426; 93005; 94002; 94003; 96365; 96366; 96367; 99152; 99153; 99291; G0378; J0330; J1815; J2250; J2543; J3480; J3490